=== PATIENT | male | born 1970 | race Asian ===

== ENCOUNTER 2018-06-15 18:43 | Inpatient (IN) | payer SELFPAY ==
[~2018-06-15 18:43] MED LIST: Glycopyrrolate 0.2 MG/ML 5 ML SYRINGE ONE; ISOVUE-370 76%-LOCM 1 ML ONE; Labetalol 100 MG/20 ML MDV ONE; Metoprolol Tartrate 5 MG/5 ML VIAL ONE; Ondansetron HCl/PF 4 MG/2 ML Vial ONE; PROPOFOL 200 MG/20 ML VIAL ONE
[2018-06-15 19:10] LABS: #Basophils 0.1 thou/uL (0.0-0.2); #Eosinphils 0.1 thou/uL (0.0-0.7); #Lymphocytes 4.1 thou/uL (1.20-3.40); #Monocytes 0.6 thou/uL (0.11-0.59); #Neutrophils 9.4 thou/uL (1.40-6.50); %Basophils 0.8 % (0.0-1.0); %Eosinophils 0.4 % (0.0-10.0); %Lymphocytes 28.8 % (21.0-51.0); %Monocytes 4.4 % (0.0-10.0); %Neutrophils 65.6 % (42.0-75.0); Hemoglobin 16.1 g/dL (14.0-18.0); Mean Corpuscular HGB CONC 34.4 g/dL (32.0-36.0); Mean Corpuscular Hemoglobin 30.3 pg (27.0-31.0); Mean Corpuscular Volume 88.2 fL (78.0-98.0); Mean Platelet Volume 7.7 fL (7.4-10.4); Platelet Count 248 thou/uL (130-400); RBC Distribution Width 12.3 % (11.5-14.5); White Blood Cell (WBC) Count 14.3 thou/uL (4.8-10.8)
[2018-06-15 19:15] LABS: PTT 25.7 SEC (22.9-36.1); Prothrombin Time 13.1 SEC (12.0-14.7)
[2018-06-15 19:33] LABS: CKMB 1.5 ng/mL (0-6.6); Troponin I Less than 0.010 ng/mL (< 0.028)
[2018-06-15] MEDS ORDERED: Phenylephrine HCL 10 MG/ML VIAL ONE (19:55)
[2018-06-15] MEDS ORDERED: Lidocaine 1% (PF) 30 ML VIAL ONE (19:58)
[2018-06-15] MEDS ORDERED: Heparin 10,000 UNITS/1 ML VIAL ONE ×2 (19:58→20:53)
[2018-06-15] MEDS ORDERED: Fentanyl 250 MCG/5 ML VIAL ONE (20:28)
[2018-06-15] MEDS ORDERED: Midazolam HCl 2 mg/2 ml Vial ONE (20:28)
--- NOTE | 2018-06-15 20:34 | CT ---
CTA HEAD WITH 3D VOLUME RENDERING: CTA NECK WITH 3D VOLUME RENDERING: CLINICAL HISTORY: Right-sided jackson-deficits with appreciating abnormal CT head exam. TECHNIQUE: Contrast enhanced CTA head and neck and CT brain perfusion examinations performed. FINDINGS: There is a component of artifactual mixed density contrast bolus within the visualized aortic arch. The bilateral common carotid and cervical internal carotid arteries are patent. There is mild eccent spencer soft plaque of the right carotid bulb, which does not result in significant stenosis. Bilateral vertebral arteries are patent, as is the basilar artery. Each TICKER INSTALLER reveals appropriate contrast opaci fication and symmetric caliber. No significant abnormality of either anterior cerebral artery. The right MCA is patent. There is abnormal absence of contrast at the initiation of the M1 segment left MCA, which, when combi jania with the preceding head CT findings, is compatible with acute thrombosis, involving the M1 segmen t left MCA. There are contrast opacified small sylvian branches on the left. Redemonstration of multifocal abnormal hypodensities of the left MCA distribution, compatible with re cent infarctions. CTA brain perfusion with contrast evaluation reveals a large region conforming to the left MCA distri bution, both anterior and posterior divisions, which reveals abnormal diminished blood flow and a pro longed mean transit time, although there is preserved blood volume. This does correspond to a large penumbra of viable brain parenchyma. IMPRESSION: 1. Acute M1 thrombosis of left middle cerebral artery with associated acute left cerebral hemispheri c infarctions, multifocal. 2. Large region of penumbra occupying the anterior and posterior divisions of the left middle cerebr al artery territory. Telephone call of findings placed to neurosurgeon, Maciel Ramsay M.D., at 1927 hours on 8. CODE CR POS: [facility]
--- NOTE | 2018-06-15 20:40 | CT ---
CT OF HEAD NONCONTRAST: 06/15/18 INDICATION: Right side deficit. 48-year-old male. FINDINGS: Multifocal abnormal hypoattenuation corresponding to anterior and posterior divisions of left MCA ter ritory are present. There is associated mild interspersed hyperdensity of the left MCA which may rela te to associated, acute thrombus. no hemorrhage, mass effect or midline shift of significance evident . Scattered paranasal sinus mucosal thickening present. IMPRESSION: Evidence of acute multifocal left MCA distribution infarctions with hyperdense left MCA. Telephone call of findings placed to the ER physician, Alberto Rosen at 1857 hours, 06/15/18. Code CR. POS: [facility]
[2018-06-15] MEDS ORDERED: niCARdipine 20MG in NaCl 200 ML BAG IVPB PRN (21:03)
[2018-06-15] MEDS ORDERED: Labetalol HCl 100 MG/20 ML VIAL SLOW IVP PRN (21:03)
[2018-06-15] MEDS ORDERED: Fentanyl 100 MCG/2 ML VIAL ONE (21:09)
[2018-06-15] MEDS ORDERED: niCARdipine HCl 25 MG in Sodium Chloride 0.9% 250 ML 240 ML IVPB PRN (21:11)
--- NOTE | 2018-06-15 21:44 | HP ---
DATE OF SERVICE: 06/15/2018 HISTORY OF PRESENT ILLNESS: Mr. Manuel is a 48-year-old gentleman last seen normal by his family approximately 7 to 8 hours ago. He presents to the emergency room with a right-sided hemiplegia, neglect and slurring of speech. He had a noncontrast head CT which revealed evidence of a left-sided infarct within the internal capsule and in the posterior aspect of the left middle cerebral artery division. Subsequent to that time, underwent CT angiography which reveals an occlusion of the left M1 branch of the middle cerebral artery. CT perfusion studies per my discussion with Radiology reveals fairly substantial salvageable penumbra within the middle cerebral artery distribution. We made a decision to move forward to cerebral angiography with the intention to treat with mechanical thrombectomy. The patient was not TPA eligible due to the time window. KRYSTAL
[2018-06-15 22:35] LABS: ALT (SGPT) 26 U/L (8-55); AST (SGOT) 18 U/L (5-34); Albumin 4.3 g/dL (3.5-5.0); Alkaline Phosphatase 58 U/L (40-150); Anion Gap 12 mmol/L (10-20); BUN (Urea Nitrogen) 11 mg/dL (8.9-20.6); Bilirubin, Total 0.9 mg/dL (0.2-1.2); Calc. Creatinine Clearance 86 mL/min (70-130); Calcium 8.6 mg/dL (7.8-10.44); Carbon Dioxide 22 mmol/L (22-29); Chloride 109 mmol/L (98-107); Estimated GFR-MDRD 85; Globulin 2.8 g/dL (2.4-3.5); Glucose 167 mg/dL (70-105); Potassium 3.9 mmol/L (3.5-5.1); Protein, Total 7.1 g/dL (6.0-8.3); Sodium 139 mmol/L (136-145)
[2018-06-15] MEDS: Communication Order-Pharmacy FS SCH (22:36)
[2018-06-15] MEDS: Sodium Chloride 0.9% 1,000 ML IV SCH (22:36)
[2018-06-16 05:33] LABS: Cardiac Risk 5.6 (Less than 4.5)
--- NOTE | 2018-06-16 07:56 | CT ---
PRELIMINARY REPORT/[facility]/EMERGENTY AFTER-HOURS PROCEDURE CT Head Without Intravenous Contrast EXAM DATE/TIME: 06/16/2018 4:14 AM CLINICAL HISTORY: 48 years old, male; Condition or disease; Other: CVA; Patient HX: F/u CVA TECHNIQUE: Axial computed tomography images of the head/brain without intravenous contrast. COMPARISON: CT Brain WO Con 2018-06-15 18:54 FINDINGS: Brain: Stable multifocal edema in the left cerebral hemisphere compatible with evolving acute/subacut e infarction. Midline shift: No midline shift. Ventricles: Normal. No ventriculomegaly. Bones/joints: Normal. No acute fracture. Sinuses: Incidental sinus mucosal thickening present. No fluid levels to indicate sinusitis. Mastoid air cells: Normal as visualized. No mastoid effusion. Soft tissues: Normal. IMPRESSION: 1. Stable multifocal edema in the left cerebral hemisphere compatible with evolving acute/subacute in farction. 2. No intracranial hemorrhage. Thank you for allowing us to participate in the care of your patient. Dictated and Authenticated by: Jaquan Wright MD 06/16/2018 5:02 AM Central Time ([place] & [place]) FINAL REPORT HEAD CT WITHOUT CONTRAST: HISTORY: Followup CVA. COMPARISON: 06/15/18. FINDINGS: This report is in agreement with the preliminary report by [facility]. No acute intracranial hemorrhage. S table edema involving the left cerebrum with evidence of acute infarction. POS: [facility]
[2018-06-16] MEDS: Sodium Chloride 0.9% 1,000 ML IV SCH ×2 (08:03→21:32)
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
--- NOTE | 2018-06-16 20:19 | PRG ---
DATE OF SERVICE: 06/16/2018 SUBJECTIVE: Mr. Manuel is 1 day status post mechanical thrombectomy for an M1 thrombus occlusion. H e had repeat CT examination performed today, which reveals evolution of the infarct identified on the preprocedural CT scan. There is no evidence of hemorrhagic conversion. He does have mild degree of cerebral edema. He has no midline shift. He has been stable overnight. His groin site is closed. Neurologically, he has a slight improvement in his right hemiplegia as compared to the preprocedural state. Hemodynamically and from a cardiac, respiratory perspective, he has been stable since in the ICU. He is currently on no drips. The pat ient is safe to transfer to the stroke floor. We will continue to engage our Hospitalist Service for additional management and treatment with respect to his risk factors for stroke. He will need PT/OT , and inpatient rehab evaluation.
--- NOTE | 2018-06-16 21:21 | CON ---
DATE OF CONSULTATION: 06/16/2018 CONSULTING PHYSICIAN: Dr. Ramsay. IMPRESSION: 1. Left M1 segment stroke with secondary expressive aphasia and right-sided weakness. 2. Tobacco use. PLAN: 1. Speech therapy, OT and PT evaluations. 2. Aspirin 81 mg per day. 3. Statin of your choice. 4. Probable need for rehabilitation. HISTORY OF PRESENT ILLNESS: Mr. Manuel is a 48-year-old man who came in with acute onset of ri ght-sided weakness and aphasia. He was outside the TPA window. Dr. Ramsay was consulted and he under went thrombectomy. Postoperatively, he had a followup CT which shows an evolving area of ischemia in volving the left middle cerebral artery territory. His mother was at his bedside and reports he has not been able to speak. He seems to comprehend some of the things she tells him. He has never had a ny stroke symptoms in the past. He does not use any illicit drugs. PAST MEDICAL HISTORY: Otherwise, negative. ALLERGIES: None reported. SOCIAL HISTORY: Positive for tobacco. FAMILY HISTORY: Unremarkable. REVIEW OF SYSTEMS: Not obtainable. PHYSICAL EXAMINATION: GENERAL: He is a well-nourished middle-aged man in no acute distress. HEENT: Pupils are equal. Conjunctivae clear. Cranium normocephalic and atraumatic. NECK: No lymphadenopathy noted. EXTREMITIES: No cyanosis noted. NEUROLOGIC: He appears to be awake but is aphasic and could not really get him to respond to any of my commands. There is a subtle right facial droop. There is a fairly significant paralysis of the r ight arm and his gait is not testable. No abnormal movements were seen. IMAGING STUDIES: Reviewed. EKG shows a sinus rhythm. SUMMARY: Middle-aged man who suffered a thrombosis of his M1 segment, status post thrombectomy . Unfortunately, he has not shown a great deal of neurologic recovery, can begin usual stroke preven tative therapy at this point.
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
[2018-06-17] MEDS: Communication Order-Pharmacy FS SCH ×2 (00:38→22:39)
[2018-06-17 05:34] LABS: #Basophils 0.1 thou/uL (0.0-0.2); #Eosinphils 0.2 thou/uL (0.0-0.7); #Lymphocytes 2.9 thou/uL (1.20-3.40); #Monocytes 0.7 thou/uL (0.11-0.59); #Neutrophils 7.6 thou/uL (1.40-6.50); %Basophils 0.6 % (0.0-1.0); %Eosinophils 1.4 % (0.0-10.0); %Lymphocytes 25.1 % (21.0-51.0); %Monocytes 6.2 % (0.0-10.0); %Neutrophils 66.7 % (42.0-75.0); Hemoglobin 13.4 g/dL (14.0-18.0); Mean Corpuscular Hemoglobin 30.2 pg (27.0-31.0); Mean Corpuscular Volume 88.8 fL (78.0-98.0); Mean Platelet Volume 7.4 fL (7.4-10.4); Platelet Count 218 thou/uL (130-400); Red Blood Cell (RBC) Count 4.43 mill/uL (4.70-6.10); White Blood Cell (WBC) Count 11.5 thou/uL (4.8-10.8)
[2018-06-17 05:46] LABS: Anion Gap 12 mmol/L (10-20); BUN (Urea Nitrogen) 6 mg/dL (8.9-20.6); Calc. Creatinine Clearance 104 mL/min (70-130); Calcium 8.2 mg/dL (7.8-10.44); Carbon Dioxide 19 mmol/L (22-29); Chloride 108 mmol/L (98-107); Estimated GFR-MDRD Greater than 90; Glucose 149 mg/dL (70-105); Potassium 3.6 mmol/L (3.5-5.1); Sodium 135 mmol/L (136-145)
[2018-06-17] MEDS ORDERED: Aspirin 300 MG Suppository PR SCH (09:00)
--- NOTE | 2018-06-17 09:38 | PRG ---
DATE OF SERVICE: 06/17/2018 He is status post cerebrovascular accident status post thrombectomy. He is more awake this morning. He is not able to move his right side. He is aphasic. PHYSICAL EXAMINATION: VITAL SIGNS: Blood pressure 149/78, sats 90% on room air, respiration rate 18, temperature 98. Ches t x-ray was clear. CHEST: Decreased breath sounds, no wheezing. CARDIAC: Normal S1-S2. No gallops. ABDOMEN: Soft, no masses. LABORATORY: Electrolytes are normal. PLAN: Continue aggressive PT and supportive care. Pulmonary Critical Care will follow at a distance. Please call if needed.
--- NOTE | 2018-06-17 09:56 | CCL ---
PROCEDURE NOTE: DATE: 06/15/18. SURGEON: Dr. Ramsay with no certified dental assistant. INDICATION: Ischemic stroke. DIAGNOSIS: This left middle cerebral artery occlusion. PROCEDURE: Diagnostic angiography with mechanical thrombectomy. ANESTHESIA: General. TECHNIQUE: The patient was brought into the angiogram suite and placed under general anesthesia. Both groins were prepped and draped in usual sterile fashion. 1% lidocaine was used to inject the right groin. A 5 Sami micropuncture set was used to gain access to the right common femoral artery. Using the Seldinger technique, an 8 Sami concentric guide catheter passed over a 125 cm Rice catheter, passed over a guidewire and was placed into the aortic arch. The catheter was selectively placed into the left internal carotid artery where an AP and lateral angiogram was performed. Angiography revealed the presence of an M1 branch occlusion of the left side. The Trevo microcatheter was passed over a Transcend micro guidewire which was advanced into the M1 thrombus and beyond. The Trevo device was deployed a total of 1 time. After retrieval of the Trevo device, there was amish of flow throughout the middle cerebral artery. There was a noted area of stenosis along the M1 segment which may have been the underlying ictus for the patient's thrombus to begin with. After revascularization of TICI score of 3, all catheters were then removed. Hemostasis was maintained with manual compression. The procedure came to an end without complication. POS: [facility]
[2018-06-17] MEDS: Aspirin 325 mg Enteric Coated Tablet PO SCH (11:07)
[2018-06-17] MEDS: Sodium Chloride 0.9% 1,000 ML IV SCH (11:22)
--- NOTE | 2018-06-17 16:41 | PRG ---
DATE OF SERVICE: 06/17/2018 SUBJECTIVE: The patient is still somnolent today. He is not significantly verbal interactive. He i s a bit more awake today. His mother is in the room and believes he is slightly more awake and alert today. She reports that he was able to eat a few bites. He was seen by Speech Therapy and they did clear him for his swallow. OBJECTIVE: VITAL SIGNS: T-max 98.5, pulse 68, respirations 18, O2 sat 97% on room air, BP 162/81. GENERAL APPEARANCE: Age appropriate male. He is in no distress. He is supine in the bed. He appea rs to be sleepy, but does awaken, open his eyes, look around a bit. He does not make good eye contac t. HEENT: PERRL. No OP lesions. HEART: Regular rate and rhythm. LUNGS: Clear bilaterally. ABDOMEN: Soft and nontender. EXTREMITIES: Warm and dry without edema. NEUROLOGIC: Patient continues to have dense right hemiplegia. He is still not significantly interac tive and appears to be a bit encephalopathic, but he is following some commands. He can squeeze his left hand, although it feels a little bit weak. He is still able to move the left lower extremity we ll. LABORATORY DATA: White count 11.5, hemoglobin 13.4, platelets 218. Sodium 135, potassium 3.6, chlor megan 108, CO2 19, BUN 6, creatinine 0.79, glucose 155, ranging down to 106. IMPRESSION AND PLAN: Cerebrovascular accident with M3 branch left MCA occluded. He had mechanical t hrombectomy with Dr. Ramsay. He continues to have some dense right hemiplegia and expressive aphasia. It seems as though the patient understands reasonably well and will follow some commands. Patient is going to need time in recovery. We will continue with OT, PT and speech therapy. We will get cindy e management working on discharge planning. We will also add a statin and keep the patient on antipl atelet therapy with aspirin. Allowing some permissive hypertension.
[2018-06-17] MEDS: Atorvastatin Calcium 40 MG TAB PO SCH (21:44)
[2018-06-17] MEDS ORDERED: Communication Order-Pharmacy FS SCH (22:15)
[2018-06-18] MEDS: Sodium Chloride 0.9% 1,000 ML IV SCH ×2 (00:41→18:04)
[2018-06-18 06:14] LABS: Anion Gap 12 mmol/L (10-20); BUN (Urea Nitrogen) 8 mg/dL (8.9-20.6); Calc. Creatinine Clearance 104 mL/min (70-130); Carbon Dioxide 20 mmol/L (22-29); Chloride 107 mmol/L (98-107); Estimated GFR-MDRD Greater than 90; Glucose 112 mg/dL (70-105); Potassium 3.8 mmol/L (3.5-5.1); Sodium 135 mmol/L (136-145)
[2018-06-18] MEDS: Aspirin 325 mg Enteric Coated Tablet PO SCH (09:35)
--- NOTE | 2018-06-18 15:09 | CT ---
HEAD CT WITHOUT CONTRAST: Comparison: 06-16-18 History: CVA. Follow up exam. Fall. FINDINGS: No parenchymal hemorrhage. No extraaxial hematoma. No midline shift. Basilar cisterns are patent. The re is mild mass effect on the frontal horn of the left lateral ventricle. No significant midline shif t. There are expected evolutionary changes involving the left MCA distribution infarctions. The right ce rebrum is unremarkable and there is preservation of cortical white matter differentiation. No evidence of hydrocephalus. Calvarium is intact. Adequate aeration of the sinuses and mastoid air c ells. Minimal right ethmoidal mucosal thickening. IMPRESSION: 1. Expected evolutionary changes involving a right inferior distribution infarct. 2. No evidence of intracranial post-traumatic sequellae. POS: [facility]
[2018-06-18] MEDS: Atorvastatin Calcium 40 MG TAB PO SCH (21:58)
--- NOTE | 2018-06-19 00:50 | PRG ---
DATE OF SERVICE: 06/18/2018 SUBJECTIVE: The arts and sciences dean went to talk to the patient and his mother today. The patient is still generally nonverbal. He will on occasion answer one word questions. He denies any pain, denies having any questions. His mother reports that he is slightly more awake today and he was able to eat a bit today. OBJECTIVE: VITAL SIGNS: Temperature 97.8, pulse 64, respirations 20, O2 sat 95%, blood pressure 144/79. GENERAL APPEARANCE: Age appropriate male, he is in no distress. He still appears very encephalopathic. He does not make much eye contact. He will follow some commands. HEENT: Pupils are reactive. HEART: Regular rate and rhythm. LUNGS: Clear bilaterally. ABDOMEN: Soft and nontender. EXTREMITIES: No edema. NEUROLOGIC: The patient continues to have dense hemiplegia on the right with no movement at all. He does attempt to vocalize at times, but nothing intelligible. LABORATORY DATA: Sodium 135, potassium 3.8, chloride 107, CO2 of 20, BUN 8, creatinine 0.77, glucose 112 and up to 186. Calcium is 9. IMPRESSION AND PLAN: Status post left M3 branch middle cerebral artery distribution, cerebrovascular accident with mainly a thrombectomy. The patient continues to have dense right hemiplegia and expressive aphasia. He is able to eat somewhat. He is on statin. He has been seen by Neurology. At this point, the patient is stable. He will need to ensure the patient is getting adequate caloric intake, although it does seem to be getting better daily. We also prepared to start looking at disposition options for the patient. He has been speaking with his mother today. She indicates that they will take him home and care for him. She stated that she would be there during the day and that his girlfriend will be available at night. I talked to the leather case finisher regarding disposition and will work on finding adequate supplies and teaching the family to prepare for discharge. KRYSTAL
[2018-06-19] MEDS: Aspirin 325 mg Enteric Coated Tablet PO SCH (08:28)
[2018-06-19] MEDS: Sodium Chloride 0.9% 1,000 ML IV SCH ×2 (10:12→13:34)
[2018-06-19 13:55] VITALS: BMI 25.5
--- NOTE | 2018-06-19 21:23 | PDOC.PN ---
- Subjective Encounter Start Date: 06/19/18 Encounter Start Time: 10:00 Patient denies any pain or problems. Denies having any questions. - Objective Resuscitation Status: Resuscitation Status FULL:Full Resuscitation Vital Signs & Weight: Vital Signs (12 hours) Temp Pulse Resp BP BP Pulse Ox 06/19/18 20:00 98.2 F 72 16 149/86 H 94 L 06/19/18 16:00 98.1 F 68 16 143/78 H 95 06/19/18 11:55 97.6 F 69 16 147/83 H 96 Weight Admit Weight 139 lb 12.369 oz Weight 135 lb 3.2 oz Most Recent Monitor Data Heart Rate from ECG 72 NIBP 118/63 NIBP BP-Mean 80 Respiration from ECG 17 SpO2 98 I&O: 06/18/18 06/19/18 06/20/18 06:59 06:59 06:59 Intake Total 1080 Balance 1080 Result Diagrams: 06/17/18 04:58 06/18/18 04:33 Additional Labs: Accuchecks 06/19/18 06/19/18 06/19/18 17:10 10:51 05:35 POC Glucose 161 H 170 H 131 H 06/19/18 01:07 POC Glucose 164 H Phys Exam - Physical Examination Constitutional: NAD Still somnolent, but easily awakens. HEENT: PERRLA Neck: no nodes, no JVD Respiratory: no wheezing, no rales, no rhonchi, clear to auscultation bilateral Cardiovascular: RRR, no significant murmur, no rub Gastrointestinal: soft, non-tender, no distention, positive bowel sounds Musculoskeletal: no edema Persistent right hemiplegia. Dx/Plan (1) Hemiplegia affecting dominant side, post-stroke Code(s): I69.359 - HEMIPLGA FOLLOWING CEREBRAL INFARCTION AFFECTING UNSP SIDE Status: Acute (2) Expressive aphasia Code(s): R47.01 - APHASIA Status: Acute - Plan * Medically stable. Working with CM and the family to get any and all resources available for the family to care for the family at home. His mother indicates that the patient's significant other is coming to stay with him at the hospital every night. They understand that he will basically be total care. Long discussion regarding the fact that he may not regain much function. He has no movement on the right and little chance that therapy will help that. Focus should primarily be on speech and managing with the debility. * On statin and aspirin.
[2018-06-19] MEDS: Atorvastatin Calcium 40 MG TAB PO SCH (21:29)
[2018-06-20] MEDS: Aspirin 325 mg Enteric Coated Tablet PO SCH (08:34)
[2018-06-20 11:55] VITALS: TEMP 98.3
--- NOTE | 2018-06-20 14:03 | EKG ---
Test Reason : Blood Pressure : / mmHG Vent. Rate : 075 BPM Atrial Rate : 075 BPM P-R Int : 210 ms QRS Dur : 098 ms QT Int : 404 ms P-R-T Axes : 072 004 141 degrees QTc Int : 451 ms Sinus rhythm with 1st degree A-V block Incomplete right bundle branch block ST elevation consider inferior injury or acute infarct Abnormal ECG Confirmed by JHONY THOMAS MD ([id number]), video tape editor ADELITA CARO ([id number]) on 06/20/2018 2:02:56 PM Referred By: Confirmed By:JHONY THOMAS MD
--- NOTE | 2018-06-20 15:03 | PDOC.PN ---
- Subjective Encounter Start Date: 06/20/18 Encounter Start Time: 12:30 Denies any problems or pain. Denies any questions. - Objective Resuscitation Status: Resuscitation Status FULL:Full Resuscitation Vital Signs & Weight: Vital Signs (12 hours) Temp Pulse Resp BP Pulse Ox 06/20/18 11:54 98.3 F 77 20 133/78 96 06/20/18 08:00 98.1 F 62 20 06/20/18 07:56 98.1 F 62 20 136/84 95 06/20/18 04:31 98.2 F 72 16 141/75 H 96 Weight Admit Weight 139 lb 12.369 oz Weight 135 lb 3.2 oz Most Recent Monitor Data Heart Rate from ECG 72 NIBP 118/63 NIBP BP-Mean 80 Respiration from ECG 17 SpO2 98 I&O: 06/19/18 06/20/18 06/21/18 06:59 06:59 06:59 Intake Total 1180 240 Balance 1180 240 Result Diagrams: 06/17/18 04:58 06/18/18 04:33 Additional Labs: Accuchecks 06/20/18 06/20/18 06/19/18 11:25 05:58 21:15 POC Glucose 203 H 164 H 181 H 06/19/18 17:10 POC Glucose 161 H Phys Exam - Physical Examination Constitutional: NAD Respiratory: no wheezing, no rales, no rhonchi, clear to auscultation bilateral Cardiovascular: RRR, no significant murmur Gastrointestinal: soft, non-tender, no distention, positive bowel sounds Musculoskeletal: no edema Psychiatric: normal affect Dx/Plan (1) Hemiplegia affecting dominant side, post-stroke Code(s): I69.359 - HEMIPLGA FOLLOWING CEREBRAL INFARCTION AFFECTING UNSP SIDE Status: Acute Comment: Rehab as possible here. Working on educating family for home care. (2) Expressive aphasia Code(s): R47.01 - APHASIA Status: Acute - Plan * On statin and ASA. He is limited on resources and there is no [facility] avail right now for HH or rehab. Working with family. Medical stable for discharge when that can be arranged with family.
[2018-06-20 15:28] VITALS: BP 134/81
== END 2018-06-20 19:25 | disposition home or self-care (01) | DRG 23 ==
LOC: ERS 18:43 → CCU 20:15 → CCL 20:20 → CCU 21:29 → 2SE 06-16 12:05
PROVIDERS: ADMIT Neurological Surgery; ATTEND Internal Medicine
PROC: 00C Central Nervous System and Cranial Nerves, Extirpation (ICD-10-PCS; principal; 2018-06-15)
DX: I63.512 Cerebral infarction due to unspecified occlusion or stenosis of left middle cerebral artery (principal); G93.6 Cerebral edema; G81.91 Hemiplegia, unspecified affecting right dominant side; R47.01 Aphasia; Z72.0 Tobacco use; R29.810 Facial weakness
CPT/HCPCS: 0042T; 36415; 36416; 37184; 70450; 70496; 70498; 71045; 80048; 80053; 80061; 82553; 84484; 85025; 85610; 85730; 93005; 94760; A4216; C1757; C1887; G8978-GP-CM; G8979-GP-CL; G8987-GO-CM; G8988-GO-CK; G9162-GN-CN; G9163-GN-CL; J1644; J2001; J2250; J2370; J2405; J2704; J3010; J7050